=== PATIENT | male | born 1995 ===

== ENCOUNTER 2017-12-20 08:58 | Inpatient (IN) ==
[2017-12-20] MEDS ORDERED: Morphine Inj 4 MG/ML Vial ONE ×2 (09:36→09:41)
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
[2017-12-20] MEDS ORDERED: Ampicillin/Sulbactam Inj 3 GM in Sodium Chloride 0.9% Inj 100 ML IV.SIG ONE (10:00)
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
[2017-12-20 10:05] LABS: Baso % (Auto) 0.4 % (0.0-2.0); Eos # (Auto) 0.2 th/mm3 (0.0-0.4); Eos % (Auto) 1.3 % (0.0-4.0); Hematocrit 42.3 % (39.0-51.0); Hemoglobin 13.9 gm/dL (13.0-17.0); Lymph # (Auto) 3.3 th/mm3 (1.0-4.8); Lymph % (Auto) 27.6 % (9.0-44.0); Mean Corpuscular HGB Conc 32.9 % (32.0-36.0); Mean Corpuscular Hemoglobin 30.9 pg (27.0-34.0); Mean Corpuscular Volume 93.8 fL (80.0-100.0); Mean Platelet Volume 8.5 fL (7.0-11.0); Mono # (Auto) 0.9 th/mm3 (0.0-0.9); Mono % (Auto) 7.3 % (0.0-8.0); Neut # (Auto) 7.5 th/mm3 (1.8-7.7); Neut % (Auto) 63.4 % (16.0-70.0); Platelet Count 216 th/mm3 (150-450); Red Blood Count 4.51 mil/mm3 (4.50-5.90); Red Cell Distribution Width 12.9 % (11.6-17.2); White Blood Count 11.8 th/mm3 (4.0-11.0)
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
[2017-12-20 10:17] LABS: Activated Partial Thrombo Time 29.2 sec (24.3-30.1); INR 1.1 Ratio; Prothrombin Time 11.4 sec (9.8-11.6)
[2017-12-20] MEDS ORDERED: Bupivacaine/Epinephrine 0.5% Inj 50 ML Vial ONE (10:46)
[2017-12-20] MEDS ORDERED: Chlorhexidine Gluconate 2% 1 Pack (2 Cloths) TOPICAL ONE (11:18)
[2017-12-20] MEDS ORDERED: Metoprolol Tartrate 25 MG Tablet PO ONE (11:18)
[2017-12-20] MEDS ORDERED: Glycopyrrolate Inj 1 MG/5 ML Syringe IV.PUSH ONE (11:34)
[2017-12-20] MEDS ORDERED: Neostigmine Inj 5 MG/5 ML Syringe IV.PUSH ONE (11:34)
[2017-12-20] MEDS ORDERED: Lidocaine PF 1% Inj 5 ML Syringe OTHER ONE (11:34)
[2017-12-20] MEDS ORDERED: Sodium Chlor 0.9% Inj 500 ML IV.SIG SCH (12:00)
[2017-12-20] MEDS ORDERED: Morphine Inj 4 MG/ML Vial IV.PUSH PRN ×2 (13:02→17:09)
[2017-12-20] MEDS ORDERED: Bisacodyl 10 MG Supp RECTAL PRN (13:02)
[2017-12-20] MEDS ORDERED: Naloxone Inj 0.4 MG/ML Vial IV.PUSH PRN (13:02)
[2017-12-20] MEDS ORDERED: oxyCODONE/Acetaminophen 10/325 Tablet PO PRN (13:02)
[2017-12-20] MEDS ORDERED: Post-op Orders (for Pharmacy) OTHER ONE (13:02)
[2017-12-20] MEDS ORDERED: *Meperidine Inj 25 MG/ML Vial PERIprocedural Use ONLY ONE (13:18)
[2017-12-20] MEDS ORDERED: fentaNYL Citrate Inj 100 MCG/2 ML Ampul ONE ×2 (13:21→14:33)
[2017-12-20] MEDS ORDERED: *morphine SULFATE 4 MG/ML PERIprocedure ONLY ONE (13:35)
[2017-12-20] MEDS ORDERED: *morphine SULFATE 10 MG/ML PERIprocedure ONLY ONE ×2 (13:42→13:50)
[2017-12-20] MEDS ORDERED: HYDROmorphone PF Inj 2 MG/ML Vial ONE ×2 (13:57→14:06)
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
[2017-12-20] MEDS: Senna/Docusate Sodium 8.6/50 MG Tablet PO SCH (21:31)
[2017-12-21] MEDS: Senna/Docusate Sodium 8.6/50 MG Tablet PO SCH (08:10)
[2017-12-21 09:32] VITALS: BP 123/58; PULSE 83; RESP 19; TEMP 98; O2SAT 96
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
== END 2017-12-21 11:24 | disposition home or self-care (01) ==
LOC: NEPC 08:58 → NEDA 10:15 → N07 10:57
PROVIDERS: ADMIT Surgery; ATTEND Surgery